=== PATIENT | male | born 1990 | race Caucasian/White ===

== ENCOUNTER 2018-04-05 11:11 | Emergency (ER) | payer BC ==
--- NOTE | 2018-04-05 11:55 | EDM.PDOC ---
ED HPI GENERAL MEDICAL PROBLEM - General Chief Complaint: Respiratory Problem Stated Complaint: FEVER, CONGESTION, LOST VOICE Time Seen by Provider: 04/05/18 11:51 Source of Information: Reports: Patient History Limitations: Reports: No Limitations - History of Present Illness INITIAL COMMENTS - FREE TEXT/NARRATIVE: HISTORY AND PHYSICAL: History of present illness: Patient is a 27-year-old male here with complaint of cough and fever x 11 days. He states he has started to lose his voice recently. Denies vomiting, diarrhea, chest pain, abdominal pain, SOB. He denies significant past medical history. Review of systems: As per history of present illness and below otherwise all systems reviewed and negative. Past medical history: As per history of present illness and as reviewed below otherwise noncontributory. Surgical history: As per history of present illness and as reviewed below otherwise noncontributory. Social history: No reported history of drug or alcohol abuse. Family history: As per history of present illness and as reviewed below otherwise noncontributory. Physical exam: General: Patient sitting comfortably in no acute distress and nontoxic appearing. Voice is hoarse. HEENT: Atraumatic, normocephalic, pupils reactive, negative for conjunctival pallor or scleral icterus, mucous membranes moist, throat clear, neck supple, nontender, trachea midline. No meningeal signs. Lungs: Clear to auscultation, breath sounds equal bilaterally, chest nontender. Heart: S1S2, regular, negative for clicks, rubs, or overt murmur. Abdomen: Soft, nondistended, nontender. Negative for masses or hepatosplenomegaly. Negative for costovertebral tenderness. Pelvis: Stable nontender. Genitourinary: Deferred. Rectal: Deferred. Extremities: Atraumatic, negative for cords or calf pain. Neurovascular unremarkable. Neuro: Awake, alert, oriented. Cranial nerves II through XII unremarkable. Cerebellum unremarkable. Motor and sensory unremarkable throughout. Exam nonfocal. Notes: Diagnostics: Influenza, CXR Therapeutics: None Prescriptions: Azithromycin Ventolin inhaler Impression: Acute bronchitis, laryngitis Plan: 1. Take medications as instructed. Alternate Tylenol and Motrin as needed. 2. Follow-up with primary care provider 3. Return to ED as needed as discussed Definitive disposition and diagnosis as appropriate pending reevaluation and review of above. Lower Back Pain Score (Numeric/FACES): 4 - Related Data Allergies Allergy/AdvReac Type Severity Reaction Status Date / Time No Known Allergies Allergy Verified 04/05/18 11:31 Home Meds: Home Meds Albuterol [Ventolin HFA] 1 puff INH Q4H #1 inhaler 04/05/18 [Rx] Azithromycin [Zithromax] 250 mg PO ASDIRECTED #1 dosepk 04/05/18 [Rx] Past Medical History HEENT History: Reports: None Cardiovascular History: Reports: None Respiratory History: Reports: None Gastrointestinal History: Reports: Other (See Below) Other Gastrointestinal History: abdominal surgery as an Genitourinary History: Reports: None Musculoskeletal History: Reports: None Neurological History: Reports: None Psychiatric History: Reports: None Endocrine/Metabolic History: Reports: None Hematologic History: Reports: None Immunologic History: Reports: None Oncologic (Cancer) History: Reports: None Dermatologic History: Reports: None - Infectious Disease History Infectious Disease History: Reports: None - Past Surgical History Head Surgeries/Procedures: Reports: None HEENT Surgical History: Reports: Oral Surgery Social & Family History - Family History Family Medical History: Noncontributory - Tobacco Use Smoking Status *Q: Never Smoker - Caffeine Use Caffeine Use: Reports: Tea - Recreational Drug Use Recreational Drug Use: No ED ROS GENERAL - Review of Systems Review Of Systems: ROS reveals no pertinent complaints other than HPI. ED EXAM, GENERAL - Physical Exam Exam: See Below (See dictation) Course - Vital Signs Last Recorded V/S: Last Vital Signs Temp 96.9 F 04/05/18 11:31 Pulse 100 04/05/18 11:31 Resp 18 04/05/18 11:31 BP 127/79 04/05/18 11:31 Pulse Ox 95 04/05/18 11:31 Departure - Departure Time of Disposition: 12:51 Disposition: Home, Self-Care 01 Condition: Good Clinical Impression: Acute bronchitis, Laryngitis - Discharge Information Prescriptions: Albuterol [Ventolin HFA] 1 puff INH Q4H #1 inhaler Azithromycin [Zithromax] 250 mg PO ASDIRECTED #1 dosepk Referrals: Yariel Viera MD [Primary Care Provider] - Forms: ED Department Discharge Additional Instructions: The following information is given to patients seen in the emergency department who are being discharged to home. This information is to outline your options for follow-up care. We provide all patients seen in our emergency department with a follow-up referral. The need for follow-up, as well as the timing and circumstances, are variable depending upon the specifics of your emergency department visit. If you don't have a primary care physician on staff, we will provide you with a referral. We always advise you to contact your personal physician following an emergency department visit to inform them of the circumstance of the visit and for follow-up with them and/or the need for any referrals to a consulting specialist. The emergency department will also refer you to a specialist when appropriate. This referral assures that you have the opportunity for follow-up care with a specialist. All of these measure are taken in an effort to provide you with optimal care, which includes your follow-up. Under all circumstances we always encourage you to contact your private physician who remains a resource for coordinating your care. When calling for follow-up care, please make the office aware that this follow-up is from your recent emergency room visit. If for any reason you are refused follow-up, please contact the [facility] Emergency Department at and asked to speak to the emergency department charge nurse. [facility] [address] [place] [id number] 1. Take medications as instructed. Alternate Tylenol and Motrin as needed. 2. Follow-up with primary care provider 3. Return to ED as needed as discussed
--- NOTE | 2018-04-05 12:49 | CR ---
HISTORY: Chest pain and [id number]. FINDINGS: Single AP view of the chest is provided. The lungs are normally expanded and clear. No pleural effusion or pneumothorax is seen. Cardiac silhouette size is within normal limits. IMPRESSION: Clear lungs. Dictated by Augie Lundy MD @ Apr 05 2018 12:46PM Signed by Dr. Augie Lundy @ Apr 05 2018 12:46PM
== END 2018-04-05 13:07 | disposition home or self-care (01) ==
LOC: MW.ED 11:11
DX: J04.0 Acute laryngitis (principal); J20.9 Acute bronchitis, unspecified
CPT/HCPCS: 71045; 71045-26; 87804; 99283

== ENCOUNTER 2018-05-20 16:56 | Emergency (ER) | payer BC ==
[2018-05-20] MEDS ORDERED: Diphtheria,Pertussis(Acell),Tetanus Vaccine 0.5 ML Syringe IM ONE (17:34)
--- NOTE | 2018-05-20 17:41 | EDM.PDOC ---
ED HPI GENERAL MEDICAL PROBLEM - General Chief Complaint: Laceration Stated Complaint: NEEDS STITCHES Time Seen by Provider: 05/20/18 17:35 Source of Information: Reports: Patient History Limitations: Reports: No Limitations - History of Present Illness INITIAL COMMENTS - FREE TEXT/NARRATIVE: HISTORY AND PHYSICAL: History of present illness: Patient is a 28-year-old male presents to the ED with her right hand injury 30 minutes prior to arrival to the ED. Patient states he was working with a metal bar which penetrated near his thumb on his right hand. He states he is not up-to -date with his daily vaccine. He states he has full sensation of all fingers and able to move all fingers. Review of systems: As per history of present illness and below otherwise all systems reviewed and negative. Past medical history: As per history of present illness and as reviewed below otherwise noncontributory. Surgical history: As per history of present illness and as reviewed below otherwise noncontributory. Social history: No reported history of drug or alcohol abuse. Family history: As per history of present illness and as reviewed below otherwise noncontributory. Physical exam: General: Patient sitting comfortably in no acute distress and nontoxic appearing HEENT: Atraumatic, normocephalic, pupils reactive, negative for conjunctival pallor or scleral icterus, mucous membranes moist, throat clear, neck supple, nontender, trachea midline. No meningeal signs. Lungs: Clear to auscultation, breath sounds equal bilaterally, chest nontender. Heart: S1S2, regular, negative for clicks, rubs, or overt murmur. Abdomen: Soft, nondistended, nontender. Negative for masses or hepatosplenomegaly. Negative for costovertebral tenderness. No rigidity, rebound , guarding. Pelvis: Stable nontender. Genitourinary: Deferred. Rectal: Deferred. Extremities: There is a 2-3 cm laceration between the webspace of the thumb and the second finger. Patient has full ROM of all digits on bilateral hands. Radial pulses grossly intact bilaterally. Patient has full sensation of all digits. Plan refill less than 2 seconds. Negative for cords or calf pain. Neurovascular unremarkable. Neuro: Awake, alert, oriented. Cranial nerves II through XII unremarkable. Cerebellum unremarkable. Motor and sensory unremarkable throughout. Exam nonfocal. Diagnostics: hand xray, right Therapeutics: Lidocaine, sutures, tdap Prescriptions: None Impression: Hand laceration Plan: 1. You can use ibuprofen and Tylenol as checked for pain or discomfort. 2. Keep area clean and dry. Return in 7-10 days for suture removal. Do not soak area for long periods of time under water. 3. Follow-up to primary care provider as discussed. 4. Return to the ED as needed and as discussed. Definitive disposition and diagnosis as appropriate pending reevaluation and review of above. Right Hand Pain Score (Numeric/FACES): 3 - Related Data Allergies Allergy/AdvReac Type Severity Reaction Status Date / Time No Known Allergies Allergy Verified 05/20/18 17:30 Home Meds: Home Meds . [No Known Home Meds] 05/20/18 [History] Past Medical History HEENT History: Reports: None Cardiovascular History: Reports: None Respiratory History: Reports: None Gastrointestinal History: Reports: Other (See Below) Other Gastrointestinal History: abdominal surgery as an Genitourinary History: Reports: None Musculoskeletal History: Reports: None Neurological History: Reports: None Psychiatric History: Reports: None Endocrine/Metabolic History: Reports: None Hematologic History: Reports: None Immunologic History: Reports: None Oncologic (Cancer) History: Reports: None Dermatologic History: Reports: None - Infectious Disease History Infectious Disease History: Reports: None - Past Surgical History Head Surgeries/Procedures: Reports: None HEENT Surgical History: Reports: Oral Surgery GI Surgical History: Reports: Vannessa Fundoplication Social & Family History - Family History Family Medical History: Noncontributory - Tobacco Use Smoking Status *Q: Never Smoker - Caffeine Use Caffeine Use: Reports: Tea - Recreational Drug Use Recreational Drug Use: No ED ROS GENERAL - Review of Systems Review Of Systems: ROS reveals no pertinent complaints other than HPI. ED EXAM, SKIN/RASH Exam: See Below (see dictation) ED SKIN PROCEDURES - Laceration/Wound Repair Right Hand Lac/Wound length In cm: 3 Appearance: Superficial, Irregular Distal NVT: Neuro & Vascular Intact, No Tendon Injury Anesthetic Type: Local Local Anesthesia - Lidocaine (Xylocaine): 1% Plain Local Anesthetic Volume: 5cc Skin Prep: Chlorhexidine (Hibiciens) Exploration/Debridement/Repair: Wound Explored, Explored to Base, No Foreign Material Found Closed with: Sutures Suture Size: 4-0 # of Sutures: 6 Suture Type: Nylon Drain Placement: No Sterile Dressing Applied: Nurse Tetanus Status Addressed: Yes Complications: No Course - Vital Signs Last Recorded V/S: Last Vital Signs Temp 98.5 F 05/20/18 17:26 Pulse 93 05/20/18 17:26 Resp 18 05/20/18 17:26 BP 145/98 H 05/20/18 17:26 Pulse Ox 97 05/20/18 17:26 - Orders/Labs/Meds Orders: Active Orders 24 hr Category Date Time Status Communication Order [RC] STAT Care 05/20/18 18:26 Ordered Vaccines to be Administered [RC] PER UNIT ROUTINE Care 05/20/18 17:35 Active Hand Comp Min 3V Rt [CR] Stat Exams 05/20/18 17:34 Taken Meds: Medications Discontinued Medications Generic Name Dose Route Start Last Admin Trade Name Funmi PRN Reason Stop Dose Admin Bacitracin 1 dose 05/20/18 18:26 Bacitracin Oint 1 Gm TOP 05/20/18 18:27 ONETIME ONE Diphtheria/Tetanus/Acell Pertussis 0.5 ml 05/20/18 17:34 05/20/18 17:57 Adacel IM 05/20/18 17:35 0.5 ml .ONCE ONE Administration Lidocaine HCl 5 ml 05/20/18 17:35 05/20/18 17:58 Xylocaine-Mpf 1% INJECT 05/20/18 17:36 5 ml ONETIME ONE Administration Departure - Departure Time of Disposition: 18:29 Disposition: Home, Self-Care 01 Clinical Impression: Laceration - Discharge Information Instructions: Laceration Care, Adult, [id number] Referrals: Yariel Viera MD [Primary Care Provider] - Forms: ED Department Discharge Additional Instructions: The following information is given to patients seen in the emergency department who are being discharged to home. This information is to outline your options for follow-up care. We provide all patients seen in our emergency department with a follow-up referral. The need for follow-up, as well as the timing and circumstances, are variable depending upon the specifics of your emergency department visit. If you don't have a primary care physician on staff, we will provide you with a referral. We always advise you to contact your personal physician following an emergency department visit to inform them of the circumstance of the visit and for follow-up with them and/or the need for any referrals to a consulting specialist. The emergency department will also refer you to a specialist when appropriate. This referral assures that you have the opportunity for follow-up care with a specialist. All of these measure are taken in an effort to provide you with optimal care, which includes your follow-up. Under all circumstances we always encourage you to contact your private physician who remains a resource for coordinating your care. When calling for follow-up care, please make the office aware that this follow-up is from your recent emergency room visit. If for any reason you are refused follow-up, please contact the [facility] Emergency Department at and asked to speak to the emergency department charge nurse. [facility] [address] [place] [id number] [facility] [address] [place] [phone] 1. You can use ibuprofen and Tylenol as checked for pain or discomfort. 2. Keep area clean and dry. Return in 7-10 days for suture removal. Do not soak area for long periods of time under water. 3. Follow-up to primary care provider as discussed. 4. Return to the ED as needed and as discussed. - My Orders Last 24 Hours: My Active Orders 05/20/18 17:34 Hand Comp Min 3V Rt [CR] Stat 05/20/18 17:35 Vaccines to be Administered [RC] PER UNIT ROUTINE 05/20/18 18:26 Communication Order [RC] STAT - Assessment/Plan Last 24 Hours: My Active Orders 05/20/18 17:34 Hand Comp Min 3V Rt [CR] Stat 05/20/18 17:35 Vaccines to be Administered [RC] PER UNIT ROUTINE 05/20/18 18:26 Communication Order [RC] STAT
[2018-05-20] MEDS ORDERED: Bacitracin Oint 1 GM U/D Packet TOP ONE (18:26)
--- NOTE | 2018-05-20 18:49 | CR ---
Indication: Hand laceration Technique: Three views right hand Comparison: None Findings: Bones: Alignment is normal. No fractures or bone lesions. Joint spaces: Unremarkable. Soft tissues: Unremarkable. Impression: Negative. Dictated by Jenelle Clay MD @ May 20 2018 6:48PM Signed by Dr. Jenelle Clay @ May 20 2018 6:48PM
== END 2018-05-20 18:38 | disposition home or self-care (01) ==
LOC: MW.ED 16:56
DX: S61.411A Laceration without foreign body of right hand, initial encounter (principal); W45.8XXA Other foreign body or object entering through skin, initial encounter; Z23 Encounter for immunization
CPT/HCPCS: 12002; 73130; 90471; 90715; 99283; J2001; 99282

== ENCOUNTER 2023-03-25 00:52 | Emergency (ER) | payer BC ==
[2023-03-25] MEDS ORDERED: Sodium Chloride 0.9% 10 ML Syringe FLUSH PRN (01:04)
[2023-03-25] MEDS ORDERED: Sodium Chloride 0.9% 2.5 ML Syringe FLUSH PRN (01:04)
[2023-03-25 01:19] LABS: BASOPHILS ABSOLUTE AUTO 0.03 K/uL (0.00-0.20); BASOPHILS PERCENT AUTO 0.5 % (0.0-1.0); EOSINOPHILS ABSOLUTE AUTO 0.17 K/uL (0.00-0.45); EOSINOPHILS PERCENT AUTO 2.8 % (0.0-6.0); HEMATOCRIT 43.8 % (42.0-52.0); HEMOGLOBIN 15.6 g/dL (14.0-18.0); IMMATURE GRAN ABSOLUTE AUTO 0.02 K/uL (0.00-0.05); IMMATURE GRAN PERCENT AUTO 0.3 % (0.0-0.4); LYMPHOCYTES ABSOLUTE AUTO 2.27 K/uL (1.00-4.80); MEAN CORPUSCULAR HEMOGLOBIN 29.9 pg (28.0-32.0); MEAN CORPUSCULAR HGB CONC 35.6 g/dL (32.0-36.0); MEAN CORPUSCULAR VOLUME 84.1 fL (83.0-99.0); MEAN PLATELET VOLUME 10.9 fL (9.4-12.4); MONOCYTES PERCENT AUTO 13.4 % (0.0-8.0); NEUTROPHILS ABSOLUTE AUTO 2.69 K/uL (1.80-7.70); PLATELET COUNT,PLT 174 K/uL (150-400); RED BLOOD CELL COUNT 5.21 M/uL (4.52-5.90); WHITE BLOOD CELL COUNT,WBC 5.98 K/uL (3.9-11.3)
[2023-03-25 01:49] LABS: A/G RATIO 1.1 (0.9-1.6); ALBUMIN 4.1 g/dL (3.4-5.0); BILIRUBIN TOTAL 0.4 mg/dL (0.2-1.0); CARBON DIOXIDE,CO2 29.6 mmol/L (21.0-32.0); EST CRCL DRUG DOSING (CG) 114.24 mL/min; POTASSIUM,K 3.6 mmol/L (3.5-5.1); PROTEIN TOTAL,TP 7.7 g/dL (6.4-8.2)
== END 2023-03-25 02:56 | disposition left against medical advice (07) ==
LOC: MW.ED 00:52
DX: R07.89 Other chest pain (principal)
CPT/HCPCS: 36415; 71046; 80053; 84484; 85025; 93005; 99285; J3490; 93010; 99282